=== PATIENT | male | born 1945 | race Caucasian/White ===

== ENCOUNTER 2017-12-03 20:17 | Observation (INO) ==
--- NOTE | 2017-12-03 21:40 | XR ---
EXAM DATE: 12/03/2017 9:24 PM EDT AGE/SEX: 72 years / Male INDICATIONS: Short of breath. CLINICAL DATA: This is the patient's initial encounter. Patient reports that signs and symptoms have been present for 1 day and indicates a pain score of 3/10. MEDICAL/SURGICAL HISTORY: None. None. COMPARISON: No prior exams available for comparison. FINDINGS: A single AP view of the chest demonstrates the lungs to be symmetrically aerated without evidence of mass, infiltrate or effusion. The cardiomediastinal contours are unremarkable. Osseous structures a re intact. CONCLUSION: No acute cardiopulmonary process. Electronically signed by: Ron Herbert MD 12/03/2017 9:39 PM EDT
[2017-12-03 21:41] LABS: Chloride 110 meq/L (98-107); Potassium 4.2 meq/L (3.5-5.1); Sodium 139 meq/L (136-145)
[2017-12-03 21:42] LABS: Baso # (Auto) 0.1 th/mm3 (0.0-0.2); Baso % (Auto) 0.9 % (0.0-2.0); Eos # (Auto) 0.2 th/mm3 (0.0-0.4); Eos % (Auto) 1.7 % (0.0-4.0); Hematocrit 43.7 % (39.0-51.0); Hemoglobin 15.1 gm/dL (13.0-17.0); Lymph # (Auto) 1.3 th/mm3 (1.0-4.8); Lymph % (Auto) 12.6 % (9.0-44.0); Mean Corpuscular HGB Conc 34.5 % (32.0-36.0); Mean Corpuscular Hemoglobin 30.6 pg (27.0-34.0); Mean Corpuscular Volume 88.8 fL (80.0-100.0); Mean Platelet Volume 9.1 fL (7.0-11.0); Mono # (Auto) 0.9 th/mm3 (0.0-0.9); Mono % (Auto) 9.2 % (0.0-8.0); Neut # (Auto) 7.5 th/mm3 (1.8-7.7); Neut % (Auto) 75.6 % (16.0-70.0); Platelet Count 229 th/mm3 (150-450); Red Blood Count 4.91 mil/mm3 (4.50-5.90); Red Cell Distribution Width 13.4 % (11.6-17.2)
[2017-12-03 21:45] LABS: Albumin 3.9 g/dL (3.4-5.0); Anion Gap 8 meq/L (5-15); Blood Urea Nitrogen 29 mg/dL (7-18); Calcium 9.4 mg/dL (8.5-10.1); Carbon Dioxide 20.8 meq/L (21.0-32.0); Glucose,Random 86 mg/dL (74-106)
[2017-12-03 21:47] LABS: Activated Partial Thrombo Time 21.7 sec (24.3-30.1); Prothrombin Time 10.1 sec (9.8-11.6)
[2017-12-03 21:48] LABS: Alanine Aminotransferase 31 U/L (12-78); Aspartate Aminotransferase 27 U/L (15-37)
[2017-12-03 21:49] LABS: Glomerular Filtration Rate 22 mL/min (>89)
[2017-12-03 21:50] LABS: Total Protein 7.5 g/dL (6.4-8.2)
[2017-12-03 21:51] LABS: Alkaline Phosphatase 50 U/L (45-117); Creatine Kinase 553 U/L (39-308)
[2017-12-03 22:03] LABS: CKMB Percent 1.4 % (0.0-4.0); Creatine Kinase MB 7.6 ng/mL (0.5-3.6)
[2017-12-03 22:39] LABS: Bilirubin,Urine Negative (Negative); Clarity,Urine Clear (Clear); Color,Urine Yellow (Yellw/Straw); Glucose,Urine (UA) Negative (Negative); Leukocyte Esterase,Urine Negative (Negative); Nitrite,Urine Negative (Negative); Urobilinogen,Urine 0.2 mg/dL (Less than 2)
--- NOTE | 2017-12-03 22:47 | CT ---
EXAM DATE: 12/03/2017 10:08 PM EDT AGE/SEX: 72 years / Male INDICATIONS: Syncope. CLINICAL DATA: This is the patient's initial encounter. Patient reports that signs and symptoms have been present for 1 day and indicates a pain score of 0/10. MEDICAL/SURGICAL HISTORY: Hypertension. None. RADIATION DOSE: 57.07 CTDI (mGy) COMPARISON: No prior exams available for comparison. TECHNIQUE: CT of the head without contrast. Using automated exposure control and adjustment of the mA and/or kV according to patient size, radiation dose was kept as low as reasonably achievable to ob tain optimal diagnostic quality images. DICOM format image data is available electronically for revi ew and comparison. FINDINGS: Cerebrum: The ventricles are normal for age. No evidence of midline shift, mass lesion, hemorrhage or acute infarction. No extraaxial fluid collections are seen. Posterior Fossa: The cerebellum and brainstem are intact. The 4th ventricle is midline. The cerebe llopontine angle is unremarkable. Extracranial: The visualized portion of the orbits is intact. Skull: The calvaria is intact. No evidence of skull fracture. CONCLUSION: No acute intracranial abnormality is seen. . Electronically signed by: Ron Herbert MD 12/03/2017 10:46 PM EDT
--- NOTE | 2017-12-03 23:00 | ED ---
HPI General Chief complaint: Syncope Stated complaint: N/v passed out /lft side pain Time Seen by Provider: 12/03/17 20:42 Source: patient Mode of arrival: ambulatory Limitations: no limitations History of Present Illness HPI narrative: Patient is a 72-year-old male who comes in after a syncopal episode. He says he was walking his dogs this evening when he came back he felt dizzy. He says the next thing he knows with people standing around him. He says he then vomited twice, and came into the emergency department. Says he is feeling better now, without any interventions. He denies any headache or chest pain or shortness of breath. He denies any abdominal pain. He denies fever chills. He does not know if he hit his head or not. He says this is never happened before.. Related Data Home Medications Medication Instructions Recorded Confirmed amlodipine 5 mg PO DAILY 12/03/17 12/03/17 aspirin 81 mg CHEW 12/03/17 esomeprazole magnesium [Nexium] 20 mg PO DAILY 12/03/17 12/03/17 glimepiride 1 mg PO QAM 12/03/17 12/03/17 levothyroxine 50 mcg PO DAILY 12/03/17 12/03/17 losartan 100 mg PO DAILY 12/03/17 12/03/17 metoprolol tartrate 50 mg PO BID 12/03/17 12/03/17 pravastatin 5 12/03/17 vitamin D3-folic acid 12/03/17 Allergies Allergy/AdvReac Type Severity Reaction Status Date / Time No Known Allergies Allergy Verified 12/03/17 20:58 Review of Systems Except as stated in HPI: all other systems reviewed are negative Constitutional Denies chills and Denies fever(s) Eyes Denies blurry vision ENT Reports dizziness and Denies headache(s) Cardiovascular Denies dyspnea and Denies dyspnea on exertion Respiratory Denies cough and Denies wheezing Gastrointestinal Reports nausea and Reports vomiting Musculoskeletal Denies myalgias and Denies arthralgias Integumentary/Breasts Denies change in pigmentation and Denies lesions Neurologic Denies frequent falls and Denies focal weakness [facility] Medical History Medical History Chest pain (Acute) HTN (hypertension) (Acute) Heart attack (Acute) High cholesterol (Acute) Kidney disease (Acute) Thyroid disease (Acute) Surgical History Surgical History History of shoulder surgery (Acute) Social History Social History Substance History: No History of Abuse Second Hand Smoke Exposure: No Smoking Status: Never smoker How Often Do You Have a Drink Containing Alcohol: 2 to 4 times a month Recent Travel in [facility] within the Last 8 Weeks: No Recent Out of Country Travel within the Last 8 Weeks: No Immunization History Tetanus Immunization: Unsure Hx Influenza Vaccine This Season: Yes Exam Narrative Exam Narrative: GENERAL: Awake and alert, no acute distress. SKIN: Focused skin assessment warm/dry. HEAD: Atraumatic. Normocephalic. EYES: Pupils equal and round and reactive. No scleral icterus. Extraocular movements intact. ENT: Mucous membranes pink and moist. NECK: Trachea midline. No JVD. CARDIOVASCULAR: Regular rate and rhythm. No murmur appreciated. RESPIRATORY: No accessory muscle use. Clear to auscultation. Breath sounds equal bilaterally. GASTROINTESTINAL: Abdomen soft, non-tender, nondistended. MUSCULOSKELETAL: No obvious deformities. No clubbing. No cyanosis. No edema. NEUROLOGICAL: Awake and alert. No obvious cranial nerve deficits. Motor grossly within normal limits. Normal speech. PSYCHIATRIC: Appropriate mood and affect; insight and judgment normal. Course Hospital Course: Lab established, labs sent. CT head ordered. Chest x-ray ordered. Reevaluation(s) Reevaluation #1: Patient told the nurse he was starting to have pressure in his chest. Time: 22:11 Initial Documented Vital Signs Temperature 98.1 F 12/03/17 20:47 Pulse Rate 64 12/03/17 20:47 Respiratory Rate 20 12/03/17 20:47 Blood Pressure 174/92 H 12/03/17 20:47 Pulse Oximetry 97 12/03/17 20:47 Last Documented Vital Signs Temperature 98.1 F 12/03/17 20:47 Pulse Rate 64 12/03/17 20:47 Respiratory Rate 20 12/03/17 20:47 Blood Pressure 174/92 H 12/03/17 20:47 Pulse Oximetry 97 12/03/17 20:47 Medical Decision Making MDM Narrative Medical decision making narrative: Patient is a 9-year-old male comes in after syncopal episode. Exam shows no neurologic abnormalities. IV established, labs sent. Patient connected to the equipment monitor phototypesetting. Labs show elevated total CK 538. There are no other acute abnormalities. Patient has an elevated creatinine, but he has known history of stage IV kidney disease. While patient was here, he did develop some chest pressure. He was given aspirin. CT of the head shows no acute abnormalities. Chest x-ray shows no acute abnormalities. Patient will be placed in observation for further management of syncope and chest pain. Differential Diagnosis Differential Diagnosis: ACS versus ICH versus head injury versus electrolyte abnormality versus dehydration Medical Records Medical records reviewed: Yes I reviewed the patient's medical records. Lab Data Lab results reviewed: Yes I reviewed the patient's lab results. Result diagrams: 12/03/17 20:50 12/03/17 20:50 Lab Results 12/03/17 12/03/17 12/03/17 Range/Units 20:50 20:50 20:50 CBC w Diff Auto diff final WBC 10.0 (4.0-11.0) th/mm3 RBC 4.91 (4.50-5.90) mil/mm3 Hgb 15.1 (13.0-17.0) gm/dL Hct 43.7 (39.0-51.0) % MCV 88.8 (80.0-100.0) fL MCH 30.6 (27.0-34.0) pg MCHC 34.5 (32.0-36.0) % RDW 13.4 (11.6-17.2) % Plt Count 229 (150-450) th/mm3 MPV 9.1 (7.0-11.0) fL Neut % (Auto) 75.6 H (16.0-70.0) % Lymph % (Auto) 12.6 (9.0-44.0) % Burleigh % (Auto) 9.2 H (0.0-8.0) % Eos % (Auto) 1.7 (0.0-4.0) % Baso % (Auto) 0.9 (0.0-2.0) % Neut # (Auto) 7.5 (1.8-7.7) th/mm3 Lymph # (Auto) 1.3 (1.0-4.8) th/mm3 Burleigh # (Auto) 0.9 (0.0-0.9) th/mm3 Eos # (Auto) 0.2 (0.0-0.4) th/mm3 Baso # (Auto) 0.1 (0.0-0.2) th/mm3 WBC Differential . Differential Comment . PT 10.1 (9.8-11.6) sec INR 1.0 Ratio APTT 21.7 L (24.3-30.1) sec Sodium 139 (136-145) meq/L Potassium 4.2 (3.5-5.1) meq/L Chloride 110 H (98-107) meq/L Carbon Dioxide 20.8 L (21.0-32.0) meq/L Anion Gap 8 (5-15) meq/L BUN 29 H (7-18) mg/dL Creatinine 2.90 H (0.60-1.30) mg/dL Estimated GFR 22 L (>89) mL/min Random Glucose 86 (74-106) mg/dL Calcium 9.4 (8.5-10.1) mg/dL Total Bilirubin 0.8 (0.2-1.0) mg/dL AST 27 (15-37) U/L ALT 31 (12-78) U/L Alkaline Phosphatase 50 (45-117) U/L Total Creatine Kinase 553 H (39-308) U/L CK-MB (CK-2) 7.6 H (0.5-3.6) ng/mL CK-MB (CK-2) % 1.4 (0.0-4.0) % Troponin I Less than 0.02 L (0.02-0.05) ng/mL Total Protein 7.5 (6.4-8.2) g/dL Albumin 3.9 (3.4-5.0) g/dL Urine Color (Yellw/Straw) Urine Clarity (Clear) Urine pH (5.0-8.5) Ur Specific Dixon (1.002-1.035) Urine Protein (Neg-Trace) mg/dL Urine Glucose (UA) (Negative) mg/dL Urine Ketones (Negative) mg/dL Urine Occult Blood (Negative) Urine Nitrate (Negative) Urine Bilirubin (Negative) Urine Urobilinogen (Less than 2) mg/dL Ur Leukocyte Esterase (Negative) Urine RBC (0-3) /hpf Urine WBC (0-5) /hpf Ur Squamous Epith Cells (0-5) /hpf Micro UA Comment Urine Culture Comments 12/03/17 Range/Units 22:30 CBC w Diff WBC (4.0-11.0) th/mm3 RBC (4.50-5.90) mil/mm3 Hgb (13.0-17.0) gm/dL Hct (39.0-51.0) % MCV (80.0-100.0) fL MCH (27.0-34.0) pg MCHC (32.0-36.0) % RDW (11.6-17.2) % Plt Count (150-450) th/mm3 MPV (7.0-11.0) fL Neut % (Auto) (16.0-70.0) % Lymph % (Auto) (9.0-44.0) % [place]leigh % (Auto) (0.0-8.0) % Eos % (Auto) (0.0-4.0) % Baso % (Auto) (0.0-2.0) % Neut # (Auto) (1.8-7.7) th/mm3 Lymph # (Auto) (1.0-4.8) th/mm3 [place] # (Auto) (0.0-0.9) th/mm3 Eos # (Auto) (0.0-0.4) th/mm3 Baso # (Auto) (0.0-0.2) th/mm3 WBC Differential Differential Comment PT (9.8-11.6) sec INR Ratio APTT (24.3-30.1) sec Sodium (136-145) meq/L Potassium (3.5-5.1) meq/L Chloride (98-107) meq/L Carbon Dioxide (21.0-32.0) meq/L Anion Gap (5-15) meq/L BUN (7-18) mg/dL Creatinine (0.60-1.30) mg/dL Estimated GFR (>89) mL/min Random Glucose (74-106) mg/dL Calcium (8.5-10.1) mg/dL Total Bilirubin (0.2-1.0) mg/dL AST (15-37) U/L ALT (12-78) U/L Alkaline Phosphatase (45-117) U/L Total Creatine Kinase (39-308) U/L CK-MB (CK-2) (0.5-3.6) ng/mL CK-MB (CK-2) % (0.0-4.0) % Troponin I (0.02-0.05) ng/mL Total Protein (6.4-8.2) g/dL Albumin (3.4-5.0) g/dL Urine Color Yellow (Yellw/Straw) Urine Clarity Clear (Clear) Urine pH 6.0 (5.0-8.5) Ur Specific Dixon 1.010 (1.002-1.035) Urine Protein 100 H (Neg-Trace) mg/dL Urine Glucose (UA) Negative (Negative) mg/dL Urine Ketones Negative (Negative) mg/dL Urine Occult Blood Trace (Negative) Urine Nitrate Negative (Negative) Urine Bilirubin Negative (Negative) Urine Urobilinogen 0.2 (Less than 2) mg/dL Ur Leukocyte Esterase Negative (Negative) Urine RBC 0-3 (0-3) /hpf Urine WBC 0-5 (0-5) /hpf Ur Squamous Epith Cells 0-5 (0-5) /hpf Micro UA Comment Culture not ind Urine Culture Comments Culture not ind Imaging Data Radiologist's impression: Chest X-Ray 12/03/17 21:01 CONCLUSION: No acute cardiopulmonary process. Head CT 12/03/17 21:01 CONCLUSION: No acute intracranial abnormality is seen. . ECG Data EKG Prior to Arrival: No Attestation: I personally reviewed and interpreted this ECG as follows: Interpretation: ECG shows normal sinus rhythm at a rate of 64, no ST elevation or depression, normal intervals Discharge Plan Discharge Disposition Patient Disposition: 30 Still Patient Discharge Condition Condition: Stable Discharge Details Diagnosis: Syncope, Chest pain Physicians Team ED Provider: Diana Sewell Primary Care Provider: Chandler Novoa Attending Provider: Georgina Perez Status ED Status: Admitted Observation Patient
[2017-12-03 23:03] LABS: RBC,Urine 0-3 /hpf (0-3); Squamous Epithelial Cell,Urine 0-5 /hpf (0-5); WBC,Urine 0-5 /hpf (0-5)
[2017-12-03] MEDS ORDERED: Acetaminophen 325 MG Tablet PO PRN (23:52)
[2017-12-04] MEDS: Heparin - SQ 10,000 UNITS/ML Vial SQ SCH ×4 (00:07→22:44)
[2017-12-04] MEDS: Sod Chloride 0.9% Inj 1,000 ML IV.CONT SCH ×2 (00:09→09:59)
[2017-12-04 02:33] LABS: CKMB Percent 1.3 % (0.0-4.0); Creatine Kinase 517 U/L (39-308); Creatine Kinase MB 6.8 ng/mL (0.5-3.6)
[2017-12-04] MEDS: Levothyroxine 50 MCG Tablet PO SCH (06:06)
[2017-12-04 07:01] LABS: Baso % (Auto) 0.7 % (0.0-2.0); Eos # (Auto) 0.2 th/mm3 (0.0-0.4); Eos % (Auto) 3.9 % (0.0-4.0); Hematocrit 40.5 % (39.0-51.0); Hemoglobin 14.3 gm/dL (13.0-17.0); Lymph # (Auto) 1.5 th/mm3 (1.0-4.8); Lymph % (Auto) 23.1 % (9.0-44.0); Mean Corpuscular HGB Conc 35.3 % (32.0-36.0); Mean Corpuscular Hemoglobin 31.1 pg (27.0-34.0); Mean Corpuscular Volume 88.3 fL (80.0-100.0); Mean Platelet Volume 9.4 fL (7.0-11.0); Mono # (Auto) 0.9 th/mm3 (0.0-0.9); Mono % (Auto) 14.3 % (0.0-8.0); Neut # (Auto) 3.7 th/mm3 (1.8-7.7); Platelet Count 217 th/mm3 (150-450); Potassium 4.2 meq/L (3.5-5.1); Red Blood Count 4.59 mil/mm3 (4.50-5.90); Red Cell Distribution Width 13.1 % (11.6-17.2); White Blood Count 6.4 th/mm3 (4.0-11.0)
[2017-12-04 07:04] LABS: Calcium 9.2 mg/dL (8.5-10.1); Carbon Dioxide 23.7 meq/L (21.0-32.0)
--- NOTE | 2017-12-04 09:10 | US ---
EXAM DATE: 12/04/2017 9:04 AM EDT AGE/SEX: 72 years / Male INDICATIONS: Syncope. CLINICAL DATA: This is the patient's initial encounter. Patient reports that signs and symptoms have been present for 1 day and indicates a pain score of 0/10. MEDICAL/SURGICAL HISTORY: Hypercholesterolemia. MT. Chest pain. HTN. Kidney and thyroid disease . . Shoulder surgery. COMPARISON: [facility], CT HEAD W/O CONTRAST, 12/03/2017. . VELOCITY PARAMETERS: ICA/CCA Ratio: Right 0.8 , Left 0.9 ICA: Right 53 cm/sec, Left 55 cm/sec CCA: Right 69 cm/sec, Left 60 cm/sec ECA: Right 67 cm/sec, Left 67 cm/sec Vertebral: Right 34 cm/sec antegrade, Left 46 cm/sec antegrade FINDINGS: Right Carotid: Mild arteriosclerotic plaque is visualized.The waveforms are within normal limits. Left Carotid: Mild arteriosclerotic plaque is visualized. The waveforms are within normal limits. Other: None. CONCLUSION: Mild plaque with no evidence of stenosis. Electronically signed by: Denny Green MD 12/04/2017 9:08 AM EDT
[2017-12-04 09:15] LABS: Creatine Kinase 488 U/L (39-308)
[2017-12-04 09:27] LABS: CKMB Percent 1.4 % (0.0-4.0); Creatine Kinase MB 6.6 ng/mL (0.5-3.6)
[2017-12-04] MEDS: Metoprolol Tartrate 50 MG Tablet PO SCH ×2 (09:57→22:11)
[2017-12-04] MEDS: Pantoprazole Sodium 20 MG DR Tablet PO SCH (09:58)
[2017-12-04] MEDS: amLODIPine 5 MG Tablet PO SCH (09:58)
--- NOTE | 2017-12-04 11:30 | P.HP ---
History of Present Illness Primary Care Physician: Chandler Novoa DO Chief Complaint: Syncope History of Present Illness: 72-year-old male with known history of hypertension, hyperlipidemia, myocardial infarction, hypothyroidism, diabetes who presented to the emergency department because of syncopal episode. Patient states that he was in his normal state of health yesterday, he indicates that he has been under a lot more stress than usual and his primary medical doctor prescribed him a benzodiazepine for his anxiety/stress. Patient states that he did take some the night before and the morning of his syncopal episode. Patient stated that he took the dog out into the yard he did not go for a long walk, the day was overcast. He is been hydrating well throughout the day. He came into the house and next he remembers is looking up at his . He states that he lost consciousness for a couple seconds. When he came to he felt nausea and crawled outside and had some dry heaves. Patient denies any paresthesia, paralysis, loss of bowel or bladder control, denies any biting of his tongue, there is no indication of any tonic-clonic movements. Patient indicates that his production weigher has told him in the past that his heart rate does get beats occasionally. Because of that reason he went to the emergency department for evaluation. Patient states that while he was waiting in the waiting room he developed some chest tightness. Patient indicates over the last few months he has been experiencing intermittent chest tightness as well. There is been no pain radiating to his neck, back, shoulder, arm. He denies any diaphoresis, nausea, vomiting, lightheadedness, dizziness. He states that sometimes the chest tightness will take his breath away. He indicates that the tightness only last for couple seconds at a time and then resolves on its own. He is followed by production weigher, Dr. Angus gonzales in [place]. Patient states that he just had a echocardiogram done approximately 2 months ago at his production weigher's office. Because the patient presenting symptoms is recommended by the ER physician that the patient be observed in the hospital for further evaluation and management. - Diagnosis (1) Syncope (2) Chest pain Review of Systems All other systems reviewed negative except as stated in HPI Cardiovascular: Reports chest pain Neurologic: Reports fainting PMFSH - History History Provided By: Patient - Medical History Medical History: Medical History (Last Updated 12/04/17 @ 10:54 by SOLITARIO Martin) Chest pain Diabetes HTN (hypertension) Heart attack High cholesterol Kidney disease Thyroid disease - Surgical History Surgical History: Surgical History (Last Updated 12/04/17 @ 10:54 by SOLITARIO Martin) History of hand surgery History of shoulder surgery - Family History Family History: Family History (Last Updated 12/04/17 @ 10:55 by SOLITARIO Martin) Mother History of open heart surgery Father History of stroke History of diabetes mellitus - Tobacco History Second Hand Smoke Exposure: No Tobacco Use In Past 30 Days: No Smoking Status: Never smoker - Alcohol History How Often Do You Have a Drink Containing Alcohol: Monthly or less - Substance Use History Substance History: No History of Abuse - Travel History Recent Travel in the [place] Within the Last 8 Weeks: No Recent Travel Out of the Country Within the Last 8 Weeks: No - Immunization History Tetanus Immunization: Unsure Hx Influenza Vaccine This Season: Yes Medications and Allergies Active Medications: Active Medications Acetaminophen (Tylenol) 650 mg PO Q4H PRN PRN Reason: Temp > 100.4 Amlodipine Besylate (Norvasc) 5 mg PO DAILY [facility] Last Admin: 12/04/17 09:58 Dose: 5 mg Heparin Sodium (Porcine) (Heparin Inj) 5,000 units SQ Q8H [facility] Last Admin: 12/04/17 09:56 Dose: 5,000 units Sodium Chloride (Ns Inj) 1,000 mls @ 100 mls/hr IV.CONT .Q10H [facility] Last Admin: 12/04/17 09:59 Dose: 100 mls/hr Levothyroxine Sodium (Synthroid) 50 mcg PO DAILY@0700 [facility] Last Admin: 12/04/17 06:06 Dose: 50 mcg Losartan Potassium (Cozaar) 100 mg PO DAILY [facility] Last Admin: 12/04/17 09:57 Dose: 100 mg Metoprolol Tartrate (Lopressor) 50 mg PO BID [facility] Last Admin: 12/04/17 09:57 Dose: 50 mg Ondansetron HCl (Zofran Inj) 4 mg IV.PUSH Q6H PRN PRN Reason: NAUSEA OR VOMITING Pantoprazole Sodium (Protonix) 20 mg PO DAILY [facility] Last Admin: 12/04/17 09:58 Dose: 20 mg Allergies Allergy/AdvReac Type Severity Reaction Status Date / Time No Known Allergies Allergy Verified 12/03/17 20:58 Home Medications Medication Instructions Recorded Confirmed Type amlodipine 5 mg PO DAILY 12/03/17 12/04/17 History aspirin 81 mg CHEW DAILY 12/03/17 12/04/17 History esomeprazole magnesium [Nexium] 20 mg PO DAILY 12/03/17 12/04/17 History glimepiride 1 mg PO QAM 12/03/17 12/04/17 History levothyroxine 50 mcg PO DAILY 12/03/17 12/04/17 History losartan 100 mg PO DAILY 12/03/17 12/04/17 History metoprolol tartrate 50 mg PO BID 12/03/17 12/04/17 History vitamin D3-folic acid 0.25 mcg PO DAILY 12/03/17 12/04/17 History prazosin 5 mg PO HS 12/04/17 12/04/17 History Exam Vital signs: Vital Signs 12/03/17 20:47 12/03/17 22:00 12/03/17 23:50 Temperature 98.1 F Pulse Rate 64 62 Respiratory Rate 20 20 18 Blood Pressure 174/92 H 154/82 H 162/85 H Pulse Oximetry 97 95 12/04/17 00:42 12/04/17 01:16 12/04/17 01:42 Temperature 96 F L Pulse Rate 62 67 64 Respiratory Rate 20 20 Blood Pressure 149/77 H 137/84 Pulse Oximetry 96 12/04/17 04:00 12/04/17 08:00 Temperature 96.1 F L 96.9 F L Pulse Rate 66 70 Respiratory Rate 20 18 Blood Pressure 139/86 153/95 H Pulse Oximetry 96 96 Intake & Output 12/03/17 12/04/17 12/04/17 18:59 06:59 18:59 Intake Total 0 / 0 1000 / 1000 Output Total 1050 / 1050 Balance -1050 / -1050 1000 / 1000 Weight 119.6 kg Intake: IV 1000 / 1000 NS Inj 1,000 ML @ 100 mls/hr IV 1000 / 1000 .CONT .Q10H [facility] Rx#:[id number] Oral 0 / 0 Output: Urine 1050 / 1050 Other: Weight On Admission 119.5 kg Narrative: GENERAL: Well-developed, well-nourished, in no acute distress. alert and orientated HEENT: Head is normocephalic without any lesions or masses noted. Facial features are symmetric. Eyes: Pupils equal round reactive to light. Extraocular muscles are intact. Conjunctivae were clear. Oropharyngeal: Pharynx without any erythema edema. Tongue is midline without deviation. Buccal mucosa is moist without any masses or lesions NECK: Supple without any masses. Trachea midline no deviation. No JVD, no bruits are appreciated CARDIAC: Regular rhythm, regular rate. S1/S2 are heard. No murmurs gallops or rubs. LUNGS: Clear to auscultation bilaterally. No wheeze, rhonchi or rales. No use of accessory muscles on inspiration or expiration. ABDOMEN: Soft, nontender. Nondistended. Bowel sounds heard in all 4 quadrants. No organomegaly or masses. Negative rebound, negative guarding EXTREMITIES: No edema, pulses are equal bilaterally. No cyanosis or clubbing NEUROLOGY: Mood and affect appear appropriate. Cranial nerves II through XII grossly intact. Muscle strength 5/5 in upper and lower extremities bilaterally. Deep tendon reflexes are 2+ in upper and lower extremities bilaterally. Results - Labs CBC & Chem 7: 12/04/17 06:25 12/05/17 07:30 Labs: Laboratory Results - last 24 hr 12/03/17 12/03/17 12/03/17 20:50 20:50 20:50 CBC w Diff Auto diff final WBC 10.0 RBC 4.91 Hgb 15.1 Hct 43.7 MCV 88.8 MCH 30.6 MCHC 34.5 RDW 13.4 Plt Count 229 MPV 9.1 Neut % (Auto) 75.6 H Lymph % (Auto) 12.6 [place] % (Auto) 9.2 H Eos % (Auto) 1.7 Baso % (Auto) 0.9 Neut # (Auto) 7.5 Lymph # (Auto) 1.3 [place] # (Auto) 0.9 Eos # (Auto) 0.2 Baso # (Auto) 0.1 WBC Differential . Differential Comment . PT 10.1 INR 1.0 APTT 21.7 L Sodium 139 Potassium 4.2 Chloride 110 H Carbon Dioxide 20.8 L Anion Gap 8 BUN 29 H Creatinine 2.90 H Estimated GFR 22 L Random Glucose 86 Calcium 9.4 Total Bilirubin 0.8 AST 27 ALT 31 Alkaline Phosphatase 50 Total Creatine Kinase 553 H CK-MB (CK-2) 7.6 H CK-MB (CK-2) % 1.4 Troponin I Less than 0.02 L Total Protein 7.5 Albumin 3.9 Urine Color Urine Clarity Urine pH Ur Specific [place] Urine Protein Urine Glucose (UA) Urine Ketones Urine Occult Blood Urine Nitrate Urine Bilirubin Urine Urobilinogen Ur Leukocyte Esterase Urine RBC Urine WBC Ur Squamous Epith Cells Micro UA Comment Urine Culture Comments 12/03/17 12/04/17 12/04/17 22:30 01:20 06:25 CBC w Diff Auto diff final WBC 6.4 RBC 4.59 Hgb 14.3 Hct 40.5 MCV 88.3 MCH 31.1 MCHC 35.3 RDW 13.1 Plt Count 217 MPV 9.4 Neut % (Auto) 58.0 Lymph % (Auto) 23.1 [place] % (Auto) 14.3 H Eos % (Auto) 3.9 Baso % (Auto) 0.7 Neut # (Auto) 3.7 Lymph # (Auto) 1.5 [place] # (Auto) 0.9 Eos # (Auto) 0.2 Baso # (Auto) 0.0 WBC Differential . Differential Comment . PT INR APTT Sodium Potassium Chloride Carbon Dioxide Anion Gap BUN Creatinine Estimated GFR Random Glucose Calcium Total Bilirubin AST ALT Alkaline Phosphatase Total Creatine Kinase 517 H CK-MB (CK-2) 6.8 H CK-MB (CK-2) % 1.3 Troponin I Less than 0.02 L Total Protein Albumin Urine Color Yellow Urine Clarity Clear Urine pH 6.0 Ur Specific [place] 1.010 Urine Protein 100 H Urine Glucose (UA) Negative Urine Ketones Negative Urine Occult Blood Trace Urine Nitrate Negative Urine Bilirubin Negative Urine Urobilinogen 0.2 Ur Leukocyte Esterase Negative Urine RBC 0-3 Urine WBC 0-5 Ur Squamous Epith Cells 0-5 Micro UA Comment Culture not ind Urine Culture Comments Culture not ind 12/04/17 12/04/17 06:25 08:45 CBC w Diff WBC RBC Hgb Hct MCV MCH MCHC RDW Plt Count MPV Neut % (Auto) Lymph % (Auto) [place] % (Auto) Eos % (Auto) Baso % (Auto) Neut # (Auto) Lymph # (Auto) [place] # (Auto) Eos # (Auto) Baso # (Auto) WBC Differential Differential Comment PT INR APTT Sodium 144 Potassium 4.2 Chloride 113 H Carbon Dioxide 23.7 Anion Gap 7 BUN 30 H Creatinine 2.80 H Estimated GFR 23 L Random Glucose 112 H Calcium 9.2 Total Bilirubin AST ALT Alkaline Phosphatase Total Creatine Kinase 488 H CK-MB (CK-2) 6.6 H CK-MB (CK-2) % 1.4 Troponin I Less than 0.02 L Total Protein Albumin Urine Color Urine Clarity Urine pH Ur Specific [place] Urine Protein Urine Glucose (UA) Urine Ketones Urine Occult Blood Urine Nitrate Urine Bilirubin Urine Urobilinogen Ur Leukocyte Esterase Urine RBC Urine WBC Ur Squamous Epith Cells Micro UA Comment Urine Culture Comments - Imaging Impressions Chest X-Ray 12/03/17 21:01 CONCLUSION: No acute cardiopulmonary process. Head CT 12/03/17 21:01 CONCLUSION: No acute intracranial abnormality is seen. . Carotid Doppler Study 12/04/17 00:00 CONCLUSION: Mild plaque with no evidence of stenosis. Caprini VTE Risk Assessment Caprini VTE Risk Assessment: Moderate/High Risk (score >= 2) Caprini Risk Assessment Model: Point Value = 1 Point Value = 2 Point Value = 3 Point Value = 5 Age 41-60 Minor surgery BMI > 25 kg/m2 Swollen legs Varicose veins or History of unexplained or recurrent spontaneous Oral contraceptives or hormone replacement Sepsis (< 1 month) Serious lung disease, including pneumonia (< 1 month) Abnormal pulmonary function Acute myocardial infarction Congestive heart failure (< 1 month) History of inflammatory bowel disease Medical patient at bed rest Age 61-74 Arthroscopic surgery Major open surgery (> 45 min) Laparoscopic surgery (> 45 min) Malignancy Confined to bed (> 72 hours) Immobilizing plaster cast Central venous access Age >= 75 History of VTE Family history of VTE Factor V Leiden Prothrombin [id number] Lupus anticoagulant Anticardiolipin antibodies Elevated serum homocysteine Heparin-induced thrombocytopenia Other congenital or acquired thrombophilia Stroke (< 1 month) Elective arthroplasty Hip, pelvis, or leg fracture Acute spinal cord injury (< 1 month) Prophylaxis Regimen: Total Risk Factor Score Risk Level Prophylaxis Regimen 0-1 Low Early ambulation 2 Moderate Order ONE of the following: *Sequential Compression Device (SCD) *Heparin 5000 units SQ BID 3-4 Higher Order ONE of the following medications: *Heparin 5000 units SQ TID *Enoxaparin/Lovenox 40 mg SQ daily (WT < 150 kg, CrCl > 30 mL/min) *Enoxaparin/Lovenox 30 mg SQ daily (WT < 150 kg, CrCl > 10-29 mL/min) *Enoxaparin/Lovenox 30 mg SQ BID (WT < 150 kg, CrCl > 30 mL/min) AND/OR *Sequential Compression Device (SCD) 5 or more Highest Order ONE of the following medications: *Heparin 5000 units SQ TID (Preferred with Epidurals) *Enoxaparin/Lovenox 40 mg SQ daily (WT < 150 kg, CrCl > 30 mL/min) *Enoxaparin/Lovenox 30 mg SQ daily (WT < 150 kg, CrCl > 10-29 mL/min) *Enoxaparin/Lovenox 30 mg SQ BID (WT < 150 kg, CrCl > 30 mL/min) AND *Sequential Compression Device (SCD) Assessment and Plan - Assessment (1) Syncope Code(s): R55 - Syncope and collapse Status: Acute (2) Chest pain Code(s): R07.9 - Chest pain, unspecified Status: Acute - Plan Syncopal episode, unknown etiology -CT scan of the brain was performed which did not indicate any acute abnormality -Carotid ultrasound was performed which did not indicate any evidence of stenosis -Obtain orthostatic vitals -Telemetry was reviewed personally by myself and did not indicate any significant etiology that could cause his syncope. There is just very rare PVCs -Echocardiogram is pending -Obtain MRI of the brain -Holter monitor Chest discomfort -Patient does have increased risk factors for heart disease to include age, male , hypertension, hyperlipidemia, history of myocardial infarction, diabetes, family history of heart disease -Patient has been ruled out for acute coronary event with serial cardiac enzymes that are negative -Serial EKGs were performed and does show some Q waves in lead III without any changes, patient is never been to [place] before to be on the compare any previous EKGs -Discussed with the patient's production weigher, who indicated the patient's last echocardiogram and stress test was August 2015. At that time he had an ejection fraction of 50% and a fixed defect in the inferior leads. -Myocardial perfusion study was performed which did not indicate any ischemia, ejection fraction 39% -We will continue patient on aspirin, beta-dwight, calcium channel dwight, ARB , will hold statins at this time due to mild rhabdomyolysis Acute kidney injury -Unknown if patient has chronic kidney disease -Continued IV fluids -Monitor renal function Rhabdomyolysis, mild -We will hold statin at this time -Continue monitor CPK Hypertension, hyperlipidemia, history of myocardial infarction -Home medications have been continued except for statin due to rhabdomyolysis Hypothyroidism -Check TSH -Replacement therapy has been continued Diabetes -Oral hypoglycemic has been held at this time -Start Accu-Cheks with sliding scale insulin if needed DVT prevention -Subcutaneous heparin (1) Syncope Qualifiers: Syncope type: unspecified Qualified Code(s): R55 - Syncope and collapse (2) Chest pain Qualifiers: Chest pain type: unspecified Qualified Code(s): R07.9 - Chest pain, unspecified
[2017-12-04] MEDS ORDERED: Regadenoson Inj 0.4 MG/5 ML Syringe IV.PUSH ONE (12:57)
[2017-12-04 14:17] LABS: Chol/HDL Ratio 5.8 Ratio; HDL Cholesterol 32.2 mg/dL (40.0-60.0)
--- NOTE | 2017-12-04 15:07 | NM ---
EXAM DATE: 12/04/2017 2:24 PM EDT AGE/SEX: 72 years / Male INDICATIONS:Angina. Myocardial infarction Syncopal episode. Chest tightness. CLINICAL DATA: This is the patient's initial encounter. Patient reports that signs and symptoms have been present for 1 day and indicates a pain score of 3/10. MEDICAL/SURGICAL HISTORY: Diabetes mellitus type II. Hypercholesterolemia. Hypertension. . [place] nd and shoulder. COMPARISON: No prior exams available for comparison. DOSE: 35 mCi Tc 99m Myoview at stress 11 mCi [id number] at rest 0.4 mg Lexiscan STRESS SYMPTOMS: Dyspnea. EJECTION FRACTION: 39 % TECHNIQUE: The patient underwent pharmacologic stress with infusion of prescribed dose. Continuous ECG tracing was monitored during stress. Gated SPECT imaging was performed after stress and conventi onal SPECT imaging was performed at rest. The examination was performed on a SPECT/CT scanner, both attenuation and non-corrected datasets were reviewed. FINDINGS: Distribution: The maximum perfused segment at stress is in the septal wall. There is moderate diaphr agmatic attenuation as seen on the raw data images. Perfusion Study: The pattern of perfusion at stress is within normal limits with regional variation s perfusion within 30%. Apparent perfusion at stress and rest is unchanged. No evidence of distributi on. There is decreased activity in the apex characteristic of apical thinning or scar. Gated Study: There is diffuse decreased wall motion throughout the left ventricle without dyskinetic segments. The ejection fraction is calculated at 39%. RISK CATEGORY: Intermediate (1-3 % Annual Mortality Rate) 1. No evidence of stress-induced ischemia. 2. Global hypokinesia with 39% ejection fraction. Electronically signed by: Juvenal Higgins MD 12/04/2017 3:05 PM EDT
--- NOTE | 2017-12-04 15:37 | MR ---
EXAM DATE: 12/04/2017 3:02 PM EDT AGE/SEX: 72 years / Male INDICATIONS: . Syncope. CLINICAL DATA: This is the patient's subsequent encounter. Patient reports that signs and symptoms h ave been present for 2 days and indicates a pain score of 0/10. MEDICAL/SURGICAL HISTORY: Hypertension. Stage 4 kidney disease. . Rt shoulder, lt hand surgery COMPARISON: No prior exams available for comparison. TECHNIQUE: Multiplanar, multisequence examination of the brain was performed without contrast. FINDINGS: MRI of the brain is performed in sagittal, axial and coronal planes. The craniocervical junction and midline structures are unremarkable. Diffusion weighted images demonstrate no abnormality. No acute c ortical infarction, acute hemorrhage, mass effect or midline shift is seen.There is benign-appearing mucosal disease involving the mastoid air cells on the left. Posterior fossa structures are unremar kable. CONCLUSION: No evidence of acute intracranial pathology. No masses are identified. Mucosal disease left mastoid Electronically signed by: Shiva Walker MD 12/04/2017 3:36 PM EDT
--- NOTE | 2017-12-04 15:56 | TR ---
Date Performed: 12/04/2017 Time Performed: 13:31:38 DOCTOR: Christopher Mims DRUG LIST: CLINICAL HISTORY: REASON FOR TEST: Chest pain REASON FOR ENDING: OBSERVATION: CONCLUSION: COMMENTS: Lexiscan stress test was performed under standard four minute protocol. Radionuclide was injected one minute prior to ending the test. No electrocardiographic abormalities were present t o suggest ischemia. Nuclear imaging and interpretation are pending.
--- NOTE | 2017-12-04 16:12 | ECG ---
Date Performed: 12/04/2017 Time Performed: 01:56:12 PTAGE: 72 years EKG: Sinus rhythm Normal ECG Since PREVIOUS TRACING , no significant change noted DOCTOR: Christopher Mims Interpretating Date/Time 12/04/2017 16:11:47
--- NOTE | 2017-12-04 16:28 | ECG ---
Date Performed: 12/03/2017 Time Performed: 20:32:05 PTAGE: 72 years EKG: Sinus rhythm Normal ECG NO PREVIOUS TRACING DOCTOR: Christopher Mims Interpretating Date/Time 12/04/2017 16:27:04
--- NOTE | 2017-12-04 16:38 | ECG ---
Date Performed: 12/04/2017 Time Performed: 08:42:21 PTAGE: 72 years EKG: Sinus rhythm Normal ECG PREVIOUS TRACING : 12/04/2017 01.56 Since previous tracing, no significant change noted DOCTOR: Christopher Mims Interpretating Date/Time 12/06/2017 06:59:39
--- NOTE | 2017-12-04 18:27 | ECHRPT ---
Indication: CHEST PAIN CONCLUSIONS Normal left ventricular size. Mild concentric left ventricular hypertrophy. The left ventricular systolic function is normal with an estimated ejection fraction of 55%. Mild mitral valve regurgitation. Aortic valve sclerosis is present. Trace aortic valve regurgitation. There is trace tricuspid valve regurgitation. The estimated pulmonary arterial pressure is 34 mmHg. BP: / HR: Rhythm: Sinus MEASUREMENTS (Male / Female) Normal Values Technical Quality:Fair 2D ECHO LV Diastolic Diameter PLAX 3.8 cm 4.2 - 5.9 / 3.9 - 5.3 cm LV Systolic Diameter PLAX 3.1 cm IVS Diastolic Thickness 1.4 cm 0.6 - 1.0 / 0.6 - 0.9 cm LVPW Diastolic Thickness 1.4 cm 0.6 - 1.0 / 0.6 - 0.9 cm LV Relative Wall Thickness 0.8 RV Internal Dim ED PLAX 3.1 cm LVOT Diameter 2.0 cm Aortic Root Diameter 3.3 cm LA Systolic Diameter LX 3.9 cm 3.0 - 4.0 / 2.7 - 3.8 cm M-MODE AV Cusp Separation MM 1.8 cm DOPPLER AV Peak Velocity 205.0 cm/s AV Peak Gradient 16.8 mmHg AV Mean Gradient 8.0 mmHg AV Velocity Time Integral 36.5 cm LVOT Peak Velocity 80.5 cm/s LVOT Peak Gradient 2.6 mmHg LVOT Velocity Time Integral 16.6 cm AV Area Cont Eq vti 1.4 cm AV Area Cont Eq pk 1.2 cm Mitral E Point Velocity 61.2 cm/s Mitral A Point Velocity 80.0 cm/s Mitral E to A Ratio 0.8 LV E' Lateral Velocity 9.4 cm/s Mitral E to LV E' Lateral Ratio 6.5 LV E' Septal Velocity 5.9 cm/s Mitral E to LV E' Septal Ratio 10.3 TR Peak Velocity 247.0 cm/s TR Peak Gradient 24.4 mmHg Right Atrial Pressure 10.0 mmHg Pulmonary Artery Systolic Pressu 34.4 mmHg Right Ventricular Systolic Press 34.4 mmHg PV Peak Velocity 54.1 cm/s PV Peak Gradient 1.2 mmHg FINDINGS LEFT VENTRICLE Normal left ventricular size. Mild concentric left ventricular hypertrophy. The left ventricular systolic function is normal with an estimated ejection fraction of 55%. RIGHT VENTRICLE Normal right ventricular size and systolic function. LEFT ATRIUM The left atrial size is normal. RIGHT ATRIUM The right atrial size is normal. ATRIAL SEPTUM The interatrial septum not well visualized. AORTA The aortic root and proximal ascending aorta are not well visualized. MITRAL VALVE Mild mitral valve regurgitation. AORTIC VALVE Aortic valve sclerosis is present. Trace aortic valve regurgitation. TRICUSPID VALVE There is trace tricuspid valve regurgitation. The estimated pulmonary arterial pressure is 34.4 mmHg. PULMONARY VALVE No pulmonary valve regurgitation or stenosis. VESSELS The inferior vena cava was not well visualized. PERICARDIUM No pericardial effusion. Robert Moore MD, FACC (Electronically Signed) Final Date:04 December 2017 18:26
[2017-12-05 00:38] VITALS: RESP 20
[2017-12-05] MEDS: Heparin - SQ 10,000 UNITS/ML Vial SQ SCH (08:24)
[2017-12-05] MEDS: amLODIPine 5 MG Tablet PO SCH (08:25)
[2017-12-05] MEDS: Levothyroxine 50 MCG Tablet PO SCH (08:25)
[2017-12-05] MEDS: Pantoprazole Sodium 20 MG DR Tablet PO SCH (08:25)
[2017-12-05] MEDS: Metoprolol Tartrate 50 MG Tablet PO SCH (08:25)
[2017-12-05 08:39] LABS: CKMB Percent 1.3 % (0.0-4.0); Creatine Kinase MB 4.2 ng/mL (0.5-3.6)
--- NOTE | 2017-12-05 11:34 | P.PN ---
Subjective Interval history: 72-year-old male who is seen and examined today a couple episodes, chest pain. Patient has not had any recurrent chest pain or syncope since in the hospital. Workup has been completed. Patient is anxious to go home. Vital signs remained stable, patient afebrile Physical Exam Vital signs: Vital Signs 12/04/17 11:50 12/04/17 16:00 12/04/17 19:48 Temperature 96.4 F L 96.8 F L 96.5 F L Pulse Rate 66 69 Respiratory Rate 18 18 18 Blood Pressure 159/92 H 163/94 H Pulse Oximetry 96 95 95 12/04/17 20:00 12/05/17 00:00 12/05/17 04:00 Temperature 97.9 F 97.5 F L Pulse Rate 73 71 65 Respiratory Rate 20 20 Blood Pressure 128/70 151/89 H Pulse Oximetry 95 94 L 12/05/17 07:32 Temperature 97.2 F L Pulse Rate 62 Respiratory Rate 20 Blood Pressure 129/83 Pulse Oximetry 93 L Intake & Output 12/04/17 12/05/17 12/05/17 18:59 06:59 18:59 Intake Total 1840 / 1840 Balance 1840 / 1840 Intake: IV 1600 / 1600 NS Inj 1,000 ML @ 100 mls/hr IV 1600 / 1600 .CONT .Q10H [facility] Rx#:[id number] Oral 240 / 240 Other: # Voids 4 # Bowel Movements 0 Narrative: GENERAL: Well-developed, well-nourished, in no acute distress. alert and orientated HEENT: Head is normocephalic without any lesions or masses noted. Facial features are symmetric. Eyes: Extraocular muscles are intact. Conjunctivae were clear. NECK: Supple without any masses. Trachea midline no deviation. No JVD, CARDIAC: Regular rhythm, regular rate. S1/S2 are heard. No murmurs gallops or rubs. Holter monitor still in place LUNGS: Clear to auscultation bilaterally. No wheeze, rhonchi or rales. No use of accessory muscles on inspiration or expiration. ABDOMEN: Soft, nontender. Nondistended. Bowel sounds heard in all 4 quadrants. No organomegaly or masses. Negative rebound, negative guarding EXTREMITIES: No edema, pulses are equal bilaterally. No cyanosis or clubbing NEUROLOGY: Mood and affect appear appropriate. Cranial nerves II through XII grossly intact. Moving all extremities, speech is clear Results - Labs CBC & Chem 7: 12/04/17 06:25 12/05/17 07:30 Laboratory Results - last 24 hr 12/04/17 12/04/17 12/05/17 08:45 08:45 07:30 POC Glucose Total Creatine Kinase 322 H CK-MB (CK-2) 4.2 H CK-MB (CK-2) % 1.3 Triglycerides 284 H Cholesterol 187 LDL Cholesterol, Calc 98 HDL Cholesterol 32.2 L Cholesterol/HDL Ratio 5.80 TSH 3.360 12/05/17 08:22 POC Glucose 163 H Total Creatine Kinase CK-MB (CK-2) CK-MB (CK-2) % Triglycerides Cholesterol LDL Cholesterol, Calc HDL Cholesterol Cholesterol/HDL Ratio TSH - Imaging Impressions Head MRI 12/04/17 00:00 CONCLUSION: Myocardial Perfusion Scan Nuc Med 12/04/17 11:34 CONCLUSION: Chest X-Ray 12/03/17 21:01 CONCLUSION: No acute cardiopulmonary process. Head CT 12/03/17 21:01 CONCLUSION: No acute intracranial abnormality is seen. . Carotid Doppler Study 12/04/17 00:00 CONCLUSION: Mild plaque with no evidence of stenosis. Head MRI 12/04/17 00:00 CONCLUSION: Myocardial Perfusion Scan Nuc Med 12/04/17 11:34 CONCLUSION: - Procedures ECHOCARDIOGRAM CONCLUSIONS Normal left ventricular size. Mild concentric left ventricular hypertrophy. The left ventricular systolic function is normal with an estimated ejection fraction of 55%. Mild mitral valve regurgitation. Aortic valve sclerosis is present. Trace aortic valve regurgitation. There is trace tricuspid valve regurgitation. The estimated pulmonary arterial pressure is 34 mmHg. Assessment and Plan - Assessment (1) Syncope Code(s): R55 - Syncope and collapse Status: Acute (2) Chest pain Code(s): R07.9 - Chest pain, unspecified Status: Acute - Plan Syncopal episode, unknown etiology -CT scan of the brain was performed which did not indicate any acute abnormality -Carotid ultrasound was performed which did not indicate any evidence of stenosis -Orthostatic vitals: -Telemetry was reviewed personally by myself and did not indicate any significant etiology that could cause his syncope. There is just very rare PVCs -Echocardiogram was performed please see above results -MRI of the brain was performed which did not indicate any acute abnormality -Holter monitor in place at this time Chest discomfort -Patient does have increased risk factors for heart disease to include age, male , hypertension, hyperlipidemia, history of myocardial infarction, diabetes, family history of heart disease -Patient has been ruled out for acute coronary event with serial cardiac enzymes that are negative -Serial EKGs were performed and does show some Q waves in lead III without any changes, patient is never been to [place] before to be on the compare any previous EKGs -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 At that time he had an ejection fraction of 50% and a fixed defect in the inferior leads. -Myocardial perfusion study was performed which did not indicate any acute ischemia, however ejection fraction was 39%. Echocardiogram does confirm that the patient's ejection fraction was 55%. Which is stable from his previous echocardiogram results in 2016. -We will continue patient on aspirin, beta-dwight, calcium channel dwight, ARB , will hold statins at this time due to mild rhabdomyolysis Chronic kidney disease stage IV -Contacted patient's primary medical doctor's office who indicated that he has chronic kidney disease stage IV with a creatinine 2.8 -Continued IV fluids -Monitor renal function Rhabdomyolysis, mild -We will hold statin at this time and upon discharge. Patient will follow up with his primary medical doctor in order to resume his statin -Continue monitor CPK, which is improving Hypertension, hyperlipidemia, history of myocardial infarction -Home medications have been continued except for statin due to rhabdomyolysis -LDL is 98 Hypothyroidism -TSH 3.36 -Replacement therapy has been continued Diabetes -Oral hypoglycemic has been held at this time -Start Accu-Cheks with sliding scale insulin if needed DVT prevention -Subcutaneous heparin Discharge Planning: Discharge home in stable condition Activity: Ad nasra. Diet: Healthy heart diet Medication per medication reconciliation Follow-up with primary medical doctor in 1 week (1) Syncope Qualifiers: Syncope type: unspecified Qualified Code(s): R55 - Syncope and collapse (2) Chest pain Qualifiers: Chest pain type: unspecified Qualified Code(s): R07.9 - Chest pain, unspecified
[2017-12-05 11:42] VITALS: BP 155/87; PULSE 57; TEMP 96.5; O2SAT 94
[2017-12-05 12:17] LABS: Potassium 4.9 meq/L (3.5-5.1)
[2017-12-05 12:20] LABS: Calcium 9.9 mg/dL (8.5-10.1)
[2017-12-05 12:21] LABS: Carbon Dioxide 23.9 meq/L (21.0-32.0)
--- NOTE | 2017-12-07 16:45 | HM ---
Date Performed: 12/04/2017 Time Performed: 15:35:00 HOOKUP DATE: 12/04/17 03:35:00 PM Wed ANALYSIS START TIME: 12/04/2017 3:40:00 PM ANALYSIS END TIME: 12/05/2017 1:53:39 PM PATIENT AGE: 72 PATIENT HEIGHT: 74 PATIENT WEIGHT: 263 DRUG LIST: room 8315 PATIENT DIAGNOSIS: syncope / chest pain TEST NARRATIVE: The patient's average heart rate was 62 BPM. No episodes of tachycardia wer e noted. Heart rates less than 50 BPM were noted < 1% of the time. No pauses exceeding 2.0 secon ds were noted. 1066 ventricular ectopics, which represented 1% of the total beat count, were note d. The highest ventricular ectopic frequency occurred from 07:00 AM to 08:00 AM [place]. During this ti me 148 VE(s) occurred. Ventricular ectopics were observed as 1042 isolated beat(s) and as 12 couplet (s). No runs were noted. Some of the ventricular beats occurred in bigeminal cycles. 14 suprave ntricular ectopics, which represented < 1% of the total beat count, were noted. The highest supraven tricular ectopic frequency occurred from 04:00 PM to 05:00 PM Wed. During this time 2 SVE(s) occurre d. No episodes of ST depression (defined as -1.0 mm or more) were noted in channel 1. No episode s of ST depression (defined as -1.0 mm or more) were noted in channel 2. No episodes of ST depressio n (defined as -1.0 mm or more) were noted in channel 3. no diary maintained TEST INTERPRETATION: Patient was monitored for 22 hours and 14 minutes. Patient was in normal Si nus rhythm , average HR of 62 bpm. Periods of sinus bradycardia at 49 bpm at 4:34am and periods of sinus tachyca rdia at 102 bpm at 6:36am. There are 1042 PVC, 12 ventricular couplets, 12 PACs and 235 ventricular b igeminy cycles. Signed by : Rico Leyva
== END 2017-12-05 15:10 | disposition home or self-care (01) ==
LOC: PHEDA 20:17 → PH3 20:17 → PHED 20:17 → PH3 12-04 00:36
PROVIDERS: ADMIT Hospitalist; ATTEND Hospitalist